=== PATIENT | female | born 1990 | race Hispanic/Latino ===

== ENCOUNTER 2018-10-06 08:46 | Emergency (ER) | payer OTHER ==
[~2018-10-06] VITALS: Ht 165.1 cm; Wt 113.4 kg
--- OUTSIDE RECORDS SUMMARY | 2018-10-06 08:49 | XMS REPORT | Summary of Care ---
Author Author [facility] Urology [facility] Organization [facility] Address Unknown Phone Unavailable Encounter HQ Rhiannar_maria m(FIN) [id number] Date(s): 09/17/18 - 09/17/18 [facility] Urology [facility] [address] [place], [place] [address] Attending Physician: Yann Castle MD Vital Signs No data available for this section Problem List Condition Effective Dates Status Health Status Informant Acute UTI(Confirmed) Active Dysuria(Confirmed) Active Escherichia Active coli(Confirmed)1 Urinary Active frequency(Confirmed) Morbid Active obesity(Confirmed) H/O complete eye Resolved exam(Confirmed)2 Vaginitis(Confirmed) Active 1Problem added by Discern Expert. Allergies, Adverse Reactions, Alerts Substance Reaction Severity Status NKDA Active Medications No data available for this section Results No data available for this section Immunizations No data available for this section Procedures Procedure Date Related Diagnosis Body Site Status Sinus Completed Social History Social History Type Response Substance Abuse Use: None. Sexual Sexually active: Yes. Exercise 1 Employment/School Status: Employed. Alcohol Current, Type Liquor. Frequency: 1-2 times per month. Smoking Status Never smoker; Exposure to Tobacco Smoke None; Cigarette Smoking Last 365 Days No; Reg Smoking Cessation Counseling No entered on: 07/05/18 1none Assessment and Plan No data available for this section
--- OUTSIDE RECORDS SUMMARY | 2018-10-06 08:49 | XMS REPORT | Summary of Care ---
Author Author [facility] Organization [facility] Address Unknown Phone Unavailable Encounter HQ Sulaiman(FIN) [id number] Date(s): 01/04/18 - 01/04/18 [facility] [address] [place] [address]- Encounter Diagnosis Bacterial vaginosis (Discharge Diagnosis) - 01/04/18 Acute lower UTI (urinary tract infection) (Discharge Diagnosis) - 01/04/18 Fatty infiltration of liver (Discharge Diagnosis) - 01/04/18 Discharge Disposition: Home or Self Care Attending Physician: Yann Garcia MD Vital Signs 1 2 3 Most recent to oldest [Reference Range]: 165.1 cm (01/04/18 12:13 PM) Height 98.1 DegF (01/04/18 4:30 PM) 97.7 DegF (01/04/18 2:01 PM) 99.4 DegF *HI* (01/04/18 12:13 PM) Temperature Oral [96.4-99.1 DegF] 149/100 mmHg *HI* (01/04/18 4:30 PM) 153/100 mmHg *HI* (01/04/18 12:13 PM) Blood Pressure [90-140/60-90 mmHg] 138 mmHg (01/04/18 2:01 PM) Systolic Blood Pressure [90-140 mmHg] 87 mmHg (01/04/18 2:01 PM) Diastolic Blood Pressure [60-90 mmHg] 16 BRMIN (01/04/18 4:30 PM) 16 BRMIN (01/04/18 2:01 PM) 18 BRMIN (01/04/18 12:13 PM) Respiratory Rate [14-20 BRMIN] 66 bpm (01/04/18 4:30 PM) 83 bpm (01/04/18 2:01 PM) 83 bpm (01/04/18 12:13 PM) Peripheral Pulse Rate [60-100 bpm] 120.909 kg (01/04/18 12:13 PM) Weight 44.36 m2 (01/04/18 12:13 PM) Body Mass Index Problem List No data available for this section Allergies, Adverse Reactions, Alerts Substance Reaction Severity Status NKDA Active Medications acetaminophen-hydrocodone 325 mg-5 mg oral tablet 1 tab, Route: PO, Drug Form: TAB, Dosing Weight 120.909, kg, ONCE, STAT, Start d ate: 01/04/18 15:23:00 CDT, Stop date: 01/04/18 15:23:00 CDT Notes: (Same as: [place] 325/5) Do not exceed 4gm/day of acetaminophen. Start Date: 01/04/18 Stop Date: 01/04/18 Status: Completed fentaNYL 50 microgram, Route: IVP, ONCE, Dosing Weight 120.909, kg, Priority: STAT, Start date: 01/04/18 12:46:00 CDT, Stop date: 01/04/18 12:46:00 CDT Start Date: 01/04/18 Stop Date: 01/04/18 Status: Completed fentaNYL 50 microgram, 1 mL, Route: IVP, Drug form: INJ, ONCE, Dosing Weight 120.909, kg, Priority: STAT, Start date: 01/04/18 15:24:00 CDT, Stop date: 01/04/18 15:24:00 CDT Notes: (Same as: Sublimaze) Preservative free. Start Date: 01/04/18 Stop Date: 01/04/18 Status: Completed fosfomycin 3 gm, 1 pkt, Route: PO, Drug form: PDR/REC, ONCE, Dosing Weight 120.909, kg, Sta rt date: 01/04/18 13:20:00 CDT, Stop date: 01/04/18 13:20:00 CDT, ABX Indication : Urinary Tract Infection Notes: (Same as: Monural) mix w/ 90 to 120 ml (3 to 4 ounces) of water and stir to dissolve. Do not use hot water. Take immediately after dissolving in water. Start Date: 01/04/18 Stop Date: 01/04/18 Status: Completed metroNIDAZOLE 500 mg oral tablet 500 mg=1 tab, PO, Q12H, X 7 day, # 14 tab, 0 Refill(s) Start Date: 01/04/18 Stop Date: 01/11/18 Status: Ordered phenazopyridine 100 mg, 1 tab, Route: PO, Drug form: TAB, ONCE, Dosing Weight 120.909, kg, Prior ity: STAT, Start date: 01/04/18 13:20:00 CDT, Stop date: 01/04/18 13:20:00 CDT Notes: Give with meals.(Same as: Pyridium) Start Date: 01/04/18 Stop Date: 01/04/18 Status: Completed Saline Flush 0.9% 10 mL, Route: IVP, Drug Form: INJ, Dosing Weight 120.909, kg, PRN, PRN Line Flus h, Start date: 01/04/18 12:46:00 CDT, Duration: 30 day, Stop date: 02/03/18 12:4 5:00 CDT Notes: Same as: BD Posiflush Sterile Start Date: 01/04/18 Stop Date: 01/04/18 Status: Discontinued Sodium Chloride 0.9% (Bolus) IV 1,000 mL, Infuse Over: 1 hr, Route: IV, ONCE, Priority: STAT, Dosing Weight 120. 909 kg, Start date: 01/04/18 12:46:00 CDT, Stop date: 01/04/18 12:46:00 CDT Start Date: 01/04/18 Stop Date: 01/04/18 Status: Completed tramadol 50 mg oral tablet 50 mg=1 tab, PO, Q8H, PRN Pain, X 20 day, # 24 tab, 0 Refill(s) Start Date: 01/04/18 Stop Date: 01/24/18 Status: Ordered Results ELECTROLYTES Most recent to 1 2 oldest [Reference Range]: Sodium Lvl [135-145 138 mEq/L mEq/L] (01/04/18 12:48 PM) Potassium Lvl 3.6 mEq/L [3.5-5.1 mEq/L] (01/04/18 12:48 PM) Chloride Lvl [95-109 103 mEq/L mEq/L] (01/04/18 12:48 PM) CO2 [24-32 mEq/L] 29 mEq/L (01/04/18 12:48 PM) AGAP [10.0-20.0 9.6 mEq/L mEq/L] *LOW* (01/04/18 12:48 PM) CHEM PANEL Most recent to 1 2 oldest [Reference Range]: Creatinine Lvl 0.66 mg/dL [0.50-1.40 mg/dL] (01/04/18 12:48 PM) eGFR 120 mL/min/1.73m2 1 *NA* (01/04/18 12:48 PM) BUN [7-22 mg/dL] 10 mg/dL (01/04/18 12:48 PM) B/C Ratio [6-25] 15 (01/04/18 12:48 PM) Glucose Lvl [70-99 103 mg/dL mg/dL] *HI* (01/04/18 12:48 PM) Total Protein 8.1 g/dL [6.4-8.4 g/dL] (01/04/18 12:48 PM) Albumin Lvl [3.5-5.0 3.8 g/dL g/dL] (01/04/18 12:48 PM) Globulin [2.7-4.2 4.3 g/dL g/dL] *HI* (01/04/18 12:48 PM) A/G Ratio [0.7-1.6] 0.9 (01/04/18 12:48 PM) Calcium Lvl 9.1 mg/dL [8.5-10.5 mg/dL] (01/04/18 12:48 PM) ALT [0-65 unit/L] 46 unit/L (01/04/18 12:48 PM) AST [0-37 unit/L] 25 unit/L (01/04/18 12:48 PM) Alk Phos [39-136 68 unit/L unit/L] (01/04/18 12:48 PM) Bili Total [0.2-1.3 0.2 mg/dL mg/dL] (01/04/18 12:48 PM) Lipase Lvl [73-393 171 unit/L unit/L] (01/04/18 12:48 PM) 1Result Comment: The eGFR is calculated using the CKD-EPI formula. In most young, healthy individuals the eGFR will be >90 mL/min/1.73m2. The eGFR declines with age. An eGFR of 60-89 may be normal in some populations, particularly the elderly, for whom the CKD-EPI formula has not been extensively validated. Use of the eGFR is not recommended in the following populations: Individuals with unstable creatinine concentrations, including patients and those with serious co-morbid conditions. Patients with extremes in muscle mass or diet. The data above are obtained from the National Kidney Disease Education Program ( NKDEP) which additionally recommends that when the eGFR is used in patients with extremes of body mass index for purposes of drug dosing, the eGFR should be mul tiplied by the estimated BMI. URINE CHEM Most recent to 1 2 oldest [Reference Range]: U Preg [Negative] Negative (01/04/18 12:43 PM) URINE AND STOOL Most recent to 1 2 oldest [Reference Range]: UA Turbidity [Clear] Clear (01/04/18 12:43 PM) UA Color [Yellow] Yellow *NA* (01/04/18 12:43 PM) UA pH [5.0-8.0] 5.0 (01/04/18 12:43 PM) UA Spec Grav 1.018 [<=1.030] (01/04/18 12:43 PM) UA Glucose [Negative Negative mg/dL mg/dL] *NA* (01/04/18 12:43 PM) UA Blood [Negative] Negative (01/04/18 12:43 PM) UA Ketones [Negative Negative mg/dL mg/dL] *NA* (01/04/18 12:43 PM) UA Protein [Negative Negative mg/dL mg/dL] (01/04/18 12:43 PM) UA Urobilinogen <=1.0 mg/dL [0.1-1.0 mg/dL] *NA* (01/04/18 12:43 PM) UA Bili [Negative] Negative *NA* (01/04/18 12:43 PM) UA Leuk Est Moderate [Negative] *ABN* (01/04/18 12:43 PM) UA Nitrite Negative [Negative] (01/04/18 12:43 PM) UA WBC [0-5 /HPF] 22 /HPF *HI* (01/04/18 12:43 PM) UA RBC [0-2 /HPF] 5 /HPF *HI* (01/04/18 12:43 PM) UA Sq Epi [Few /LPF] Moderate /LPF *ABN* (01/04/18 12:43 PM) UA Mucus [None Seen Few /LPF /LPF] *NA* (01/04/18 12:43 PM) HEMATOLOGY Most recent to 1 2 oldest [Reference Range]: WBC [3.7-10.4 K/CMM] 8.1 K/CMM (01/04/18 12:48 PM) RBC [4.20-5.40 4.66 M/CMM M/CMM] (01/04/18 12:48 PM) Hgb [12.0-16.0 g/dL] 12.6 g/dL (01/04/18 12:48 PM) Hct [36.0-48.0 %] 38.3 % (01/04/18 12:48 PM) MCV [80.0-98.0 fL] 82.1 fL (01/04/18 12:48 PM) MCH [27.0-31.0 pg] 27.0 pg (01/04/18 12:48 PM) MCHC [32.0-36.0 32.9 g/dL g/dL] (01/04/18 12:48 PM) RDW [11.5-14.5 %] 16.2 % *HI* (01/04/18 12:48 PM) MPV [7.4-10.4 fL] 8.1 fL (01/04/18 12:48 PM) Platelet [133-450 387 K/CMM K/CMM] (01/04/18 12:48 PM) Segs [45.0-75.0 %] 49.2 % (01/04/18 12:48 PM) Lymphocytes 41.0 % [20.0-40.0 %] *HI* (01/04/18 12:48 PM) Monocytes [2.0-12.0 7.1 % %] (01/04/18 12:48 PM) Eosinophils [0.0-4.0 1.9 % %] (01/04/18 12:48 PM) Basophils [0.0-1.0 0.8 % %] (01/04/18 12:48 PM) Segs-Bands # 4.0 K/CMM [1.5-8.1 K/CMM] (01/04/18 12:48 PM) Lymphocytes # 3.3 K/CMM [1.0-5.5 K/CMM] (01/04/18 12:48 PM) Monocytes # [0.0-0.8 0.6 K/CMM K/CMM] (01/04/18 12:48 PM) Eosinophils # 0.2 K/CMM [0.0-0.5 K/CMM] (01/04/18 12:48 PM) Basophils # [0.0-0.2 0.1 K/CMM K/CMM] (01/04/18 12:48 PM) MOLECULAR DIAGNOSTIC Most recent to 1 2 oldest [Reference Range]: Source APTIMA Vaginal Vaginal *NA* *NA* (01/04/18 1:45 PM) (01/04/18 1:45 PM) N gonorrhea by Amp Negative Det (APTIMA) *NA* [Negative] (01/04/18 1:45 PM) C trachomatis by Amp Negative Det (APTIMA) *NA* [Negative] (01/04/18 1:45 PM) Immunizations No data available for this section Procedures No data available for this section Social History Social History Type Response Smoking Status Never smoker; Exposure to Tobacco Smoke None; Cigarette Smoking Last 365 Days No; Reg Smoking Cessation Counseling No entered on: 01/04/18 Assessment and Plan No data available for this section
--- OUTSIDE RECORDS SUMMARY | 2018-10-06 08:49 | XMS REPORT | Summary of Care ---
Author Author [facility] Urology [facility] Organization [facility] Urology [facility] Address Unknown Phone Unavailable Encounter KULDIP Hilario(FIN) [id number] Date(s): 02/05/18 - 02/05/18 [facility] Urology [facility] [address] [place], [place] [address] [[email or web address]] Discharge Disposition: Home or Self Care Attending Physician: Yann Castle MD Vital Signs Most recent to 1 oldest [Reference Range]: Height 165.1 cm (02/05/18 3:41 PM) Temperature Oral 97.7 DegF [96.4-99.1 DegF] (02/05/18 3:41 PM) Blood Pressure 131/97 mmHg [90-140/60-90 mmHg] (02/05/18 3:41 PM) Respiratory Rate 16 BRMIN [14-20 BRMIN] (02/05/18 3:41 PM) Peripheral Pulse 114 bpm Rate [60-100 bpm] *HI* (02/05/18 3:41 PM) Weight 118.182 kg (02/05/18 3:41 PM) Body Mass Index 43.36 m2 (02/05/18 3:41 PM) Problem List Condition Effective Dates Status Health Status Informant Acute UTI(Confirmed) Active Dysuria(Confirmed) Active Escherichia Active coli(Confirmed)1 Urinary Active frequency(Confirmed) Morbid Active obesity(Confirmed) H/O complete eye Resolved exam(Confirmed)2 Vaginitis(Confirmed) Active 1Problem added by Discern Expert. Allergies, Adverse Reactions, Alerts Substance Reaction Severity Status NKDA Active Medications biotin 5 mg oral capsule 5 mg=1 cap, PO, Daily, # 30 cap, 0 Refill(s) Start Date: 02/05/18 Status: Ordered Naprosyn 500 mg oral tablet 500 mg=1 tab, PO, BID, PRN Pain, # 20 tab, 0 Refill(s) Start Date: 02/05/18 Status: Ordered phenazopyridine 200 mg oral tablet 200 mg=1 tab, PO, TID, PRN Dysuria, # 6 tab, 0 Refill(s) Start Date: 02/05/18 Stop Date: 02/05/18 Status: Discontinued tramadol 50 mg oral tablet 50 mg=1 tab, PO, Q6H, PRN Pain, # 40 tab, 0 Refill(s) Start Date: 02/05/18 Stop Date: 05/13/18 Status: Discontinued Urogesic-Blue oral tablet 1 tab, PO, QID, PRN dysuria, # 60 tab, 1 Refill(s), RAYMOND, Pharmacy: [facility] Start Date: 02/05/18 Stop Date: 03/03/18 Status: Completed Results No data available for this section Immunizations No data available for this section Procedures Procedure Date Related Diagnosis Body Site Status Insertion of non-indwelling bladder catheter 02/05/18 Completed (eg, straight catheterization for residual urine) Sinus Completed Social History Social History Type [...]
--- OUTSIDE RECORDS SUMMARY | 2018-10-06 08:49 | XMS REPORT | Summary of Care ---
Author Author [facility] Urology [facility] Organization [facility] Urology [facility] Address Unknown Phone Unavailable Encounter HQ Rhiannar_maria m(FIN) [id number] Date(s): 08/16/18 - 08/16/18 [facility] [address] [place], [place] [address] Attending Physician: Yann Castle MD [...]
--- OUTSIDE RECORDS SUMMARY | 2018-10-06 08:49 | XMS REPORT | Summary of Care ---
Author Author [facility] Urology [facility] Organization [facility] Urology [facility] Address Unknown Phone Unavailable Encounter HQ Chang_maria m(FIN) [id number] Date(s): 02/08/18 - 02/09/18 [facility] Urology [facility] [address] [place], [place] [address] Vital Signs No data available for this section Problem List Condition Effective Dates Status Health Status Informant Acute UTI(Confirmed) Active Dysuria(Confirmed) Active Escherichia Active coli(Confirmed)1 Urinary Active frequency(Confirmed) Morbid Active obesity(Confirmed) H/O complete eye Resolved exam(Confirmed)2 1Problem added by Discern Expert. Allergies, Adverse [...] Reg Smoking Cessation Counseling No entered on: 02/05/18 1none Assessment and Plan No data available for this section
--- OUTSIDE RECORDS SUMMARY | 2018-10-06 08:49 | XMS REPORT | Summary of Care ---
Author Author [facility] Urology [facility] Organization [facility] Urology [facility] Address Unknown Phone Unavailable Encounter KULDIP Hilario(FIN) [id number] Date(s): 03/03/18 - 03/03/18 [facility] Urology [facility] [address] [place], [place] [address] Discharge Disposition: Home or Self Care Attending Physician: Yann Castle MD Vital Signs Most recent to 1 oldest [Reference Range]: Height 165.1 cm (03/03/18 4:07 PM) Blood Pressure 140/86 mmHg [90-140/60-90 mmHg] (03/03/18 4:07 PM) Peripheral Pulse 95 bpm Rate [60-100 bpm] (03/03/18 4:07 PM) Weight 118.182 kg (03/03/18 4:07 PM) Body Mass Index 43.36 m2 (03/03/18 4:07 PM) Problem List Condition Effective Dates Status Health Status Informant Acute UTI(Confirmed) Active Dysuria(Confirmed) Active Escherichia Active coli(Confirmed)1 Urinary Active frequency(Confirmed) Morbid Active obesity(Confirmed) H/O complete eye Resolved exam(Confirmed)2 Vaginitis(Confirmed) Active 1Problem added by Discern Expert. Allergies, Adverse Reactions, Alerts Substance Reaction Severity Status NKDA Active Medications No Known Medications Results No data available for this section [...]
--- OUTSIDE RECORDS SUMMARY | 2018-10-06 08:49 | XMS REPORT | Encounter Summary ---
Author Organization Unknown Address [address] [place] [address] Phone [phone] Reason for Visit Medical Complaint Instructions 1. Influenza-like symptoms rapid flu (A+B) 2. Pain in throat sore throat: care instructions rapid strep group A, throat Lidocaine Viscous 2 % mucosal solution 3. Dysuria painful urination (dysuria): care instructions urinalysis, dipstick cephalexin 500 mg capsule culture, urine 4. Venereal disease screening CT + NG RNA, PCR, unspecified specimen 5. Body mass index 40+ - severely obese body mass index: care instructions 6. Tachycardia patient follow up phone call Discussion Note Pt is in NAD; Verbalizes understanding of all instructions with no questions at this time. Plan of Care Patient Instructions Gargle and spit viscous lidocaine as needed for sore throat as directed. Take fluticasone as needed for congestion. [place] one spray in each nostril twice a day. Take a warm, steamy shower, blow your nose thereafter, and spray in each nostril. Tilt your head up for about 10 seconds and breath through your mouth. Do not sniff or snort the medication in or else the medication will go to your throat and not be absorbed appropriately. Alternate with Ibuprofen and acetaminophen every 4hrs as needed for pain/fever/headache. Proper hydration and rest. Return to work/school if free of fever for 24-hrs. Do not share any utensils/cups, no kissing, recommend hand washing after coughing/sneezing/blowing nose and cover face when you do so. Recommend proper hydration and frequent urination. Avoid douching, Recommend urinating after sexual intercourse. Recommend wipe front to back after urinating. Avoid using tubs. Take medications as prescribed. Follow up with your PCP within 2-3 days if symptoms worsen as discussed. Recommend follow a low sodium/fat/carb diet and exercise 30-45 mins/d 3-4 days a week once symptoms resolve. In case of an emergency call 911 or go to nearest ER. Reminders Provider Appointments None recorded. Lab Rapid Flu (A+B) 06/29/2018 [facility] Rapid Strep Group a, Throat 06/29/2018 [facility] Urinalysis, Dipstick 06/29/2018 [facility] Culture, Urine 06/29/2018 [facility] CT + NG RNA, PCR, Unspecified Specimen 06/29/2018 [facility] Referral None recorded. Procedures None recorded. Surgeries None recorded. Imaging None recorded. Medications Name Start Date cephalexin 500 mg capsule Take 1 capsule every 12 hours by oral route as directed for 10 days. fluticasone 50 mcg/actuation nasal spray,suspension USE ONE (1) SPRAY INTRANASALLY ONCE A DAY. Lidocaine Viscous 2 % mucosal solution Take 15 mL every 3 hours by oral route as needed. pantoprazole 40 mg tablet,delayed release TAKE ONE (1) TABLET(S) BY MOUTH ONCE A DAY. Urogesic-Blue 81.6 mg-40.8 mg-0.12 mg tablet 06/29/2018 Medications Administered None recorded. Vitals Height Weight BMI Blood Pressure 5 ft 5 in 250 lbs 41.6 kg/m2 110/70 mm[Hg] Lab Results Date Name Specimen Result Interpretation Description Value Range Status Address Urinalysis, Dipstick Color : Yellow [facility]: [address] [place] [address] Clarity : Cloudy [facility]: [address] [place] [address] Leukocytes : Small [facility]: [address] [place] [address] Nitrites : Negative [facility]: [address] [place] [address] Urobilinogen : Normal [facility]: [address] [place] [address] Protein : Negative [facility]: [address] [place] [address] Ph : 6.0 [facility]: [address] [place] [address] Blood : Hemolyzed Trace [facility]: [address] [place] [address] Specific [place] : 1.000 [facility]: [address] [place] [address] Ketones : Negative [facility]: [address] [place] [address] Bilirubin : Negative [facility]: [address] [place] [address] Glucose Negative [facility]: [address] [place] [address] Rapid Strep Group a, Throat Result negative [facility]: [address] [place] [address] Swab Location Left and Right tonsillar pillars [facility]: [address] [place] [address] Rapid Flu (A+B) Influenza a negative [facility]: [address] [facility] Influenza B negative [facility]: [address] [facility] Allergies Code Code System Name Reaction Severity Status Onset NKDA Problems Name Status Onset Date Source Pain in Throat Active 06/29/2018 Influenza-like Symptoms Active 06/29/2018 Tachycardia Active 06/29/2018 Dysuria Active 06/29/2018 Venereal Disease Screening Active 06/29/2018 Body Mass Index 40+ - Severely Obese Active 06/29/2018 Procedures Date Name Performed by Tonsillectomy Information not available Vaccine List Vaccine Type Tdap 01/17/2018 Social History Smoking Status Never Smoker Past Encounters 06/29/2018 Influenza-like Symptoms; Pain in Throat; Dysuria; Venereal Disease Screening; Body Mass Index 40+ - Severely Obese; Tachycardia Jessie Walsh, [facility]: [address] [place] [address], Ph. History of Present Illness [id number] Reported By: Patient HPI: Location: urethra. Quality: pain, pressure, burning. Severity: worsening, moderate. Duration: constant. Onset/Timing: worse, gradual. Context: no known exposure to STD, no prior history of STDs, sexually active, [id number], heterosexual, vaginal intercourse, history of urine cultures/antibiotic treatment, wipes anterior to posterior, voids after intercourse; Pt follow with urology for recurrent UTIs. Last f/u on 01/2018. Modifying factors nothing makes it worse. Associated Symptoms: no flank pain, no jaundice, no blood in the urine, no vaginal discharge, no blisters on genitals, no rash on genitals, no muscle aches, no headache, fever/chills, pain during urination, urgency; sinus pressure, sore throat, and body aches [id number] Reported By: Patient HPI: Quality: symptoms worse during the day. Duration: 3 days. Severity: highest temperature 100. Onset/Timing: first recorded 06-28-18. Context: no ill contacts, no tick/insect bites, no recent travel, no new medications. Associated Symptoms: no headache, no muscle aches, no rash, no lethargy, fever/chills, cough, nasal passage blockage (stuffiness); sinus pressure, sore throat, body aches, urinary urgency and dysuria. Modifying Factors nothing gives relief Review of Systems:ROS as noted in the HPI Review of Systems Basic Reported By: Patient Physical Exam Adult Basic, Adult Female Complete Reported By: Patient Constitutional: General Appearance: healthy-appearing, overweight, morbidly obese. Level of Distress: NAD. Ambulation: ambulating normally Psychiatric: Mental Status: active and alert. Orientation: to time, to place, to person Eyes: Lids and Conjunctivae: non-injected, no discharge, no pallor; no periorbital edema. Corneas: grossly intact. Lens: clear [id number]-Throat: Ears: no lesions on external ear, no outer ear tenderness, EACs clear, TMs clear. Hearing: no hearing loss. Nose: no lesions on external nose, nares patent, no septal deviation, nasal passages clear, no sinus tenderness, nasal discharge--rhinorrhea; B/L NTs pink and edematous. Lips, Teeth, and Gums: no mouth or lip ulcers, no bleeding gums, normal dentition. Oropharynx: moist mucous membranes, no erythema, no exudates, tonsils absent Neck: Neck: supple. Lymph Nodes: no cervical LAD Lungs: Respiratory effort: no dyspnea, no tachypnea, no use of accessory muscles, no intercostal retractions. Auscultation: breath sounds normal Cardiovascular: Heart Auscultation: no murmurs, tachycardia Musculoskeletal:: Extremities: no edema Neurologic: Gait and Station: normal gait, normal station. Cranial Nerves: grossly intact Abdomen: Bowel Sounds: normal. Inspection and Palpation: soft, non-distended, no tenderness, no guarding, no rebound tenderness, no masses, no CVA tenderness. Liver: non-tender, no hepatomegaly. Spleen: non-tender, no splenomegaly. Hernia: none palpable
--- OUTSIDE RECORDS SUMMARY | 2018-10-06 08:49 | XMS REPORT | Summary of Care ---
Author Author [facility] Organization [facility] Address Unknown Phone Unavailable Encounter HQ Rhiannar_maria m(FIN) [phone] Date(s): 02/08/18 - 02/09/18 [facility] [address] [place], [place] [address] Vital Signs No data available for [...]
--- OUTSIDE RECORDS SUMMARY | 2018-10-06 08:49 | XMS REPORT | Clinical Summary ---
Author Author [facility] Address Unknown Phone Unavailable Care Team Providers Care Warehouse Puller Name Role Phone Asked, No Pcp PCP Unavailable Allergies No Known Allergies Medications End Date Status Medication Sig Dispensed Refills Start Date Active pantoprazole (PROTONIX) 0 40 MG EC tablet 8 08/27/2018 clotrimazole-betamethason Apply 45 g 0 e (LOTRISONE) 1-0.05 % topically 2 9 cream (two) times a day for 10 days. 08/28/2018 ketoconazole (NIZORAL) Take 1 tablet 10 tablet 0 200 mg tablet (200 mg 9 total) by mouth 2 (two) times a day for 5 days. 09/11/2018 ketoconazole (NIZORAL) Take 1 tablet 10 tablet 0 200 mg tablet (200 mg 9 total) by mouth 2 (two) times a day for 5 days. Active Problems Not on file Encounters Care Team Description Date Type Specialty Yadira Peck MA 09/06/2018 Refill Obstetrics and Gynecology Des Fam MD 09/05/2018 Refill Obstetrics and Gynecology Yadira Peck MA 08/31/2018 Telephone Obstetrics and Gynecology Eloisa Henning, ANGELA IC (interstitial cystitis) (Primary Dx) 08/25/2018 Orders Only Obstetrics and Gynecology Des Fam MD 08/25/2018 Telephone Obstetrics and Yadira Garza MA 08/24/2018 Telephone Obstetrics and Gynecology Des Fam MD 08/23/2018 Telephone Obstetrics and Des Zhou MD 08/20/2018 Telephone Obstetrics and Gynecology Des Fam MD 08/17/2018 Telephone Obstetrics and Gynecology Des Fam MD Well woman exam (Primary Dx); Acute vaginitis 08/16/2018 Office Visit Obstetrics and Gynecology Des Fam MD 08/16/2018 Orders Only Obstetrics and Gynecology Sarai Hopson MD 07/30/2018 Abstract General Surgery after 10/05/2017 Family History Medical History Relation Name Comments Diabetes Father Heart attack Maternal Grandfather Diabetes Paternal Grandmother Relation Name Status Comments Father Maternal Grandfather Paternal Grandmother Social History Date Tobacco Use Types Packs/Day Years Used Never Smoker Smokeless Tobacco: Never Used Alcohol Use Drinks/Week oz/Week Comments No Alcohol Habits Answer Date Recorded How often do you have a drink containing alcohol? Never 08/16/2018 How many drinks containing alcohol do you have on Not asked a typical day when you are drinking? How often do you have six or more drinks on one Not asked occasion? Sex Assigned at Date Recorded Not on file Industry Job Start Date Occupation Not on file Not on file Not on file Travel End Travel History Travel Start No recent travel history available. Last Filed Vital Signs Time Taken Vital Sign Reading 08/16/2018 8:37 AM CLERK TELE[employer] Blood Pressure 138/92 08/16/2018 8:37 AM CLERK TELEVISION [employer]ODUCTION Pulse 98 08/16/2018 8:37 AM CLERK TELEVISION PRODUCTION Temperature 36.7 C (98 F) - Respiratory Rate - - Oxygen Saturation - - Inhaled Oxygen - Concentration 08/16/2018 8:37 AM CLERK TELEVISION PRODUCTION Weight 117 kg (258 lb 12.8 oz) 08/16/2018 8:37 AM CLERK TELEVISION PRODUCTION Height 165.1 cm (5' 5") 08/16/2018 8:37 AM CLERK TELEVISION PRODUCTION Body Mass Index 43.07 Plan of Treatment Care Team Description Date Type Specialty Des Fam MD [address] [place] [address] [phone] Brenna Hinds, PT 10/06/2018 Office Visit Physical Therapy Des Fam MD [address] [place] [address] [phone] Brenna Hinds, PT 10/13/2018 Office Visit Physical Therapy Des Fam MD [address] [place] [address] [phone] Brenna Hinds, PT 10/20/2018 Office Visit Physical Therapy Des Fam MD [address] [place] [address] [phone] Brenna Hinds, PT 10/27/2018 Office Visit Physical Therapy Des Fam MD [address] [facility] [address] [place] [address] [phone] Brenna Hinds, PT 11/03/2018 Office Visit Physical Therapy Des Fam MD [address] [place] [address] [address] [place] [address] [phone] Guzman Brenna, PT 11/10/2018 Office Visit Physical Therapy Des Fam MD [address] [place] [address] [place] [address] [phone] Guzman Brenna, PT 11/17/2018 Office Visit Physical Therapy Health Maintenance Due Date Last Done Comments CERVICAL CANCER SCREENING 2009 INFLUENZA VACCINE 02/17/2018 Procedures Comments Procedure Name Priority Date/Time Associated Diagnosis HEMOGLOBIN A1C Routine 08/16/2018 9:19 AM CLERK TELEVISION PRODUCTION HIV 1/2 ANTIGEN/ANTIBODY, Routine 08/16/2018 FOURTH GENERATION W/RFL 9:19 AM CLERK TELEVISION PRODUCTION (REFLEX [facility]) HPV GENOTYPES 16, 18/45 Routine 08/16/2018 9:18 AM CLERK TELEVISION PRODUCTION SURESWAB(R), CANDIDIASIS, Routine 08/16/2018 PCR (REFLEX) 9:18 AM CLERK TELEVISION PRODUCTION SURESWAB(R) TRICHOMONAS Routine 08/16/2018 VAGINALIS RNA, QL, TMA 9:18 AM CLERK TELEVISION PRODUCTION SURESWAB(R) BACTERIAL Routine 08/16/2018 VAGINOSIS DNA, QN, PCR 9:18 AM CLERK TELEVISION PRODUCTION (REFLEX) CHLAMYDIA/N. GONORRHOEAE Routine 08/16/2018 RNA, TMA 9:18 AM CLERK TELEVISION PRODUCTION HPV MRNA E6/E7 REFLEX Routine 08/16/2018 HPV 16, 18/45 (REFLEX) 9:18 AM CLERK TELEVISION PRODUCTION THINPREP TIS PAP Routine 08/16/2018 9:18 AM CLERK TELEVISION PRODUCTION PAP W/AGE BASED SCREENING Routine 08/16/2018 Well woman exam PLUS CT/NG 9:18 AM CLERK TELEVISION PRODUCTION Acute vaginitis after 10/05/2017 Results * HIV 1/2 ANTIGEN/ANTIBODY, FOURTH GENERATION W/RFL (REFLEX [facility]) (08/16/2018 9:19 AM CLERK TELEVISION PRODUCTION) HIV AG/AB 4th gen NON-REACTIVE NON-REACTIVE [facility] Comment: EUSTIS HIV-1 antigen and HIV-1/HIV-2 antibodies were not detected. There is no laboratory evidence of HIV infection. PLEASE NOTE: This information has been disclosed to you from records whose confidentiality may be protected by state law.If your state requires such protection, then the state law prohibits you from making any further disclosure of the information without the specific written consent of the person to whom it pertains, or as otherwise permitted by law. A general authorization for the release of medical or other information is NOT sufficient for this purpose. For additional information please refer to http://education.[employer].com/faq/FFE922 (This link is being provided for informational/ educational purposes only.) The performance of this assay has not been clinically validated in patients less than 2 years old. Resulting Agency Comment Performing Organization Information: Site ID: [id number] Name: [facility] Address: [address] [place] [address] Director: Radha Capps Performing Organization Address City/State/Zipcode Phone Number [employer] [place] [phone] * Hemoglobin A1c (08/16/2018 9:19 AM CLERK TELEVISION PRODUCTION) Hemoglobin A1C 5.6 <5.7 % of total Hgb [facility] Comment: EUSTIS For the purpose of screening for the presence of diabetes: <5.7% Consistent with the absence of diabetes 5.7-6.4%Consistent with increased risk for diabetes (predi abetes) > or=6.5%Consistent with diabetes This assay result is consistent with a decreased risk of diabetes. Currently, no consensus exists regarding use of hemoglobin A1c for diagnosis of diabetes in children. According to [place] Diabetes Association (ADA) guidelines, hemoglobin A1c <7.0% represents optimal control in non- diabetic patients. Different metrics may apply to specific patient populations. Standards of Medical Care in Diabetes(ADA). Resulting Agency Comment Performing Organization Information: Site ID: [id number] Name: [facility] Address: [address] [place] [phone] Director: Radha Capps Performing Organization Address City/[facility] Cent[facility] Phone Number [employer] [address] [address] * SURESWAB(R), CANDIDIASIS, PCR (08/16/2018 9:18 AM CLERK TELEVISION PRODUCTION) C. albicans, DNA NOT DETECTED [facility] C. glabrata, DNA NOT DETECTED [facility] C. tropicalis, DNA NOT DETECTED [facility] C. parapsilosis, DNA NOT DETECTED [facility] Comment: REFERENCE RANGE: NOT DETECTED This test was developed and its analytical performance characteristics have been determined by [facility]. It has not been cleared or approved by FDA. This assay has been validated pursuant to the CLIA regulations and is used for clinical purposes. Resulting Agency Comment Performing Organization Information: Site ID: [id number] Name: [facility] Address: [address] [place] [phone] Director: Antonio Liu MD Performing Organization Address City/[facility] Cent[facility]ode Phone Number [employer] [address] [place] [address] [phone] * SURESWAB(R) TRICHOMONAS VAGINALIS RNA, QL, TMA (Reflex) (08/16/2018 9:18 AM CLERK TELEVISION PRODUCTION) Sureswab(r) trichomonas NOT DETECTED [facility] vaginalis RNA, QL, TMA Comment: REFERENCE RANGE: NOT DETECTED This test was performed using the APTIMA(R) Trichomonas vaginalis assay (Gen-Probe(R)). For additional information, please refer to http://education.[facility].com/faq/Trichomonastma Resulting Agency Comment Performing Organization Information: Site ID: [id number] Name: [facility] Address: [address] [place] [phone] Director: Antonio Liu MD Performing Organization Address City/State/Zipcode Phone Number [employer] [address] [place], [place] [phone] * SURESWAB(R) BACTERIAL VAGINOSIS DNA, QN, PCR (08/16/2018 9:18 AM CLERK TELEVISION PRODUCTION) BV category NOT SUPPORTIVE [facility] Lactobacillus species NOT DETECTED Log (cells/mL) [facility] Atopobium vaginae NOT DETECTED Log (cells/mL) [facility] Megasphaera species NOT DETECTED Log (cells/mL) [facility] Gardnerella vaginalis NOT DETECTED Log (cells/mL) [facility] Comment: REFERENCE RANGE: BV Category: NOT SUPPORTIVE NOT SUPPORTIVE OF BV: The pattern of results is not supportive of a diagnosis of BV: 1) Presence of Lactobacillus spp., G. vaginalis levels less than 6.0 log cells/mL, and absence of A. vaginae and Megasphaera spp; or 2) Absence of all targeted organisms; or 3) Absence of Lactobacillus spp. plus G. vaginalis detected at levels less than 6.0 log cells/mL and absence of A. vaginae and Megasphaera spp. EQUIVOCAL FOR BV: The pattern of results is neither supportive nor not supportive of a diagnosis of BV. The patient may be in transition into or out of BV: Presence of Lactobacillus spp. plus G. vaginalis (greater or equal to 6.0 log cells/mL) and/or one of the other BV-associated pathogens. SUPPORTIVE OF BV: The pattern of results is supportive of a diagnosis of BV: Absence of Lactobacillus spp. and presence of G. vaginalis greater than or equal to 6.0 log cells/mL and/or one or both of the other BV-associated pathogens. Concentration for Lactobacilli (L. acidophilus/crispatus, L. jensenii) are collectively reported under the term "Lactobacillus spp.", as these species are among the peroxide producing Lactobacilli thought to be protective against bacterial vaginosis. Atopobium vaginae, Megasphaera spp., and Gardnerella (greater than 6.0 log cells/mL) have been associated with vaginosis when present in the absence of peroxidase producing Lactobacilli. This test was developed and its analytical performance characteristics have been determined by [facility]. It has not been cleared or approved by FDA. This assay has been validated pursuant to the CLIA regulations and is used for clinical purposes. Resulting Agency Comment Performing Organization Information: Site ID: [id number] Name: [facility] Address: [address] [place] [phone] Director: Antonio Liu MD Performing Organization Address City/State/Zipcode Phone Number [employer] [address] [place] [address] [phone] * HPV mRNA E6/E7 REFLEX HPV 16, 18/45 (08/16/2018 9:18 AM CLERK TELEVISION PRODUCTION) HPV mRNA e6/e7 Detected (A) Not Detected [facility] Comment: EUSTIS This test was performed using the APTIMA HPV Assay ([employer] This assay detects E6/E7 viral messenger RNA (mRNA) from 14 high-risk HPV types (16,18,31,33,35,39,45,51,52,56 ,58,59,66,68). The analytical performance characteristics of this assay have been determined by [facility]. The modifications have not been cleared or approved by the FDA. This assay has been validated pursuant to the CLIA regulations and is used for clinical purposes. Resulting Agency Comment Performing Organization Information: Site ID: [id number] Name: [facility] Address: [address] [place] [phone] Director: Radha Capps Performing Organization Address [facility] Centercode Phone Number [employer] [place] [phone] * PAP W/AGE BASED SCREENING PLUS CT/NG (08/16/2018 9:18 AM CLERK TELEVISION PRODUCTION) Comment Comment: [facility] This order for age-based [facility] cervical cancer and STI II screening follows ACOG guidelines(PB 168, 140, PRE406). See individual assays for performing site location. Specimen Swab Resulting Agency Comment Performing Organization Information: Site ID: [id number] Name: [facility] Address: [address] [place] [address] Director: Dr. Jero Hardy Performing Organization Address City/State/Zipcode Phone Number [facility] [address] [place] [address] II * HPV Genotypes 16, 18/45 (08/16/2018 9:18 AM CLERK TELEVISION PRODUCTION) HPV 16 RNA NOT DETECTED NOT DETECTED [facility] HPV 18/45 RNA NOT DETECTED NOT DETECTED [facility] Comment: EUSTIS This test was performed using the APTIMA HPV 16 18/45 genotype assay ([employer] The assay can differentiate HPV 16 from HPV 18 and/or HPV 45, but does not differentiate between HPV 18 and HPV 45. The analytical performance characteristics of this assay have been determined by [facility]. The modifications have not been cleared or approved by the FDA. This assay has been validated pursuant to the CLIA regulations and is used for clinical purposes. Resulting Agency Comment Performing Organization Information: [facility] Name: [facility] Address: [address] [place] [phone] Director: Radha Capps Performing Organization Address City/[facility] Centercode Phone Number [employer] [address] [address] * CHLAMYDIA/N. GONORRHOEAE RNA, TMA (08/16/2018 9:18 AM CLERK TELEVISION PRODUCTION) Chlamydia trachomatis NOT DETECTED NOT DETECTED [facility] RNA, [facility] Neisseria gonorrhoeae NOT DETECTED NOT DETECTED [facility] RNA, [facility] (Always message) Comment: [facility] This test was performed using EUSTIS the APTIMA COMBO2 Assay ([employer] The analytical performance characteristics of this assay, when used to test SurePath specimens have been determined by [facility]. Resulting Agency Comment Performing Organization Information: [facility]: [facility] Address: [address] [place] [address] Director: Radha Capps Performing Organization Address [facility] Cent[facility]ode Phone Number [employer] [address] [address] * THINPREP TIS PAP (08/16/2018 9:18 AM CLERK TELEVISION PRODUCTION) Clinical information None given [facility] EUSTIS Date of last menstrual NONE GIVEN [facility] Prev. pap: NONE GIVEN [facility] Prev. bx: NONE GIVEN [facility] Source None given [facility] EUSTIS Statement of adequacy Comment: [facility] Satisfactory for evaluation. EUSTIS Endocervical/transformation zone component present. Age and/or menstrual status not provided Interpretation/result: Comment: Negative for [facility] intraepithelial lesion or EUSTIS malignancy. Comment Comment: [facility] This Pap test has been EUSTIS evaluated with computer assisted technology. Farm Mechanic Comment: [facility] DJL, CT (ASCP) EUSTIS CT screening location: [address], [place] [address] Review human resources manager manufacturing Comment: [facility] VXJ, CT(ASCP) EUSTIS CT screening location: [place] [address] Comment Comment: [facility] EXPLANATORY NOTE: EUSTIS The Pap is a screening test for cervical cancer. It is not a diagnostic test and is subject to false negative and false positive results. It is most reliable when a satisfactory sample, regularly obtained, is submitted with relevant clinical findings and history, and when the Pap result is evaluated along with historic and current clinical information. Resulting Agency Comment Performing Organization Information: Site ID: RGA Name: [facility] Address: [address] [place] [phone] Director: Radha Capps Performing Organization Address City/State/Zipcode Phone [place] [address] after 10/05/2017 Insurance Payer Benefit Subscriber ID Type Phone Address Plan / Group [facility] xxxxxxxxx HMO/PPO THCARE CHOICE/CHO ICE + Advance Directives Patient has advance care planning documents on file. For more information, matt e contact: Navneet Carrera [address] [place] [address]
--- OUTSIDE RECORDS SUMMARY | 2018-10-06 08:49 | XMS REPORT | Continuity of Care Document ---
Author Author Becky rome Organization Interface Address Unknown Phone Unavailable Problems Problem Status Onset Date Classification Date Reported Comments Source Venereal disease screening 06/29/2018 Diagnosis 06/29/2018 [facility] Pain in throat 06/29/2018 Diagnosis 06/29/2018 [facility] Influenza-like symptoms 06/29/2018 Diagnosis 06/29/2018 [facility] Body mass index 40+ - severely obese 06/29/2018 Diagnosis 06/29/2018 [facility] Pain in Throat 06/29/2018 Problem 06/29/2018 [facility] Influenza-like Symptoms 06/29/2018 Problem 06/29/2018 [facility] Tachycardia 06/29/2018 Problem 06/29/2018 [facility] Venereal Disease Screening 06/29/2018 Problem 06/29/2018 [facility] Body Mass Index 40+ - Severely Obese 06/29/2018 Problem 06/29/2018 [facility] N30.00 - ACUTE CYSTITIS WITHOUT HEMATUR Active 05/06/2018 [facility] N30.00 ACUTE CYSTITIS W/O HEMATURIA Active 05/06/2018 [facility] ACUTE CYSTITIS W/O HEMATURIA Active 05/06/2018 [facility] Bacterial vaginosis 01/04/2018 01/07/2018 [facility] Acute lower UTI 01/04/2018 01/07/2018 [facility] Fatty infiltration of liver 01/04/2018 01/07/2018 [facility] URINARY SYMPTOMS Active 01/04/2018 [facility] Acute UTI Active Problem 09/20/2018 [facility] Dysuria Active Problem 09/20/2018 [facility] Escherichia coli<sup>1</sup> Active Problem 09/20/2018 Problem added by Discern Expert. [facility] Urinary frequency Active Problem 09/20/2018 [facility] Morbid obesity Active Problem 09/20/2018 [facility] H/O complete eye exam<sup>2</sup> Resolved Problem 09/20/2018 11/04/2017 [facility] Vaginitis Active Problem 09/20/2018 [facility] ACUTE CYSTITIS WITHOUT HEMATURIA Active [facility] Medications Medication Details Route Status Patient Instructions Ordering Provider Order Date Source Hyoscyamine Sulfate 0.12 MG / Methenamine 81.6 MG / Methylene blue 10.8 MG / Sodium Phosphate, Monobasic 40.8 MG Oral Tablet [Urogesic Blue Reformulated Oct 2011] Urogesic-Blue 81.6 mg-40.8 mg-0.12 mg tablet Active 06/29/2018 [facility] Hyoscyamine Sulfate 0.12 MG / Methenamine 81.6 MG / Methylene blue 10.8 MG / Sodium Phosphate, Monobasic 40.8 MG Oral Tablet [Urogesic Blue Reformulated Oct 2011] 1 tab, PO, QID, PRN dysuria, # 60 tab, 1 Refill(s), RAYMOND, Pharmacy: [facility] No Longer Active 02/05/2018 [facility] biotin 5 mg oral capsule 5 mg=1 cap, PO, Daily, # 30 cap, 0 Refill(s) Active 02/05/2018 [facility] Naproxen 500 MG Oral Tablet [Naprosyn] 500 mg=1 tab, PO, BID, PRN Pain, # 20 tab, 0 Refill(s) Active 02/05/2018 [facility] phenazopyridine 200 mg oral tablet 200 mg=1 tab, PO, TID, PRN Dysuria, # 6 tab, 0 Refill(s) Inactive 02/05/2018 [facility] tramadol hydrochloride 50 MG Oral Tablet 50 mg=1 tab, PO, Q6H, PRN Pain, # 40 tab, 0 Refill(s) No Longer Active 02/05/2018 [facility] tramadol hydrochloride 50 MG Oral Tablet 50 mg=1 tab, PO, Q8H, PRN Pain, X 20 day, # 24 tab, 0 Refill(s) Active 01/04/2018 [facility] Fentanyl 50 microgram, 1 mL, Route: IVP, Drug form: INJ, ONCE, Dosing Weight 120.909, kg, Priority: STAT, Start date: 01/04/18 15:24:00 CDT, Stop date: 01/04/18 15:24:00 CDTNotes: (Same as: Sublimaze) Preservative free. Inactive 01/04/2018 [facility] Acetaminophen 325 MG / Hydrocodone Bitartrate 5 MG Oral Tablet 1 tab, Route: PO, Drug Form: TAB, Dosing Weight 120.909, kg, ONCE, STAT, Start date: 01/04/18 15:23:00 CDT, Stop date: 01/04/18 15:23:00 CDTNotes: (Same as: Baldwin 325/5) Do not exceed 4gm/day of acetaminophen. Inactive 01/04/2018 [facility] Metronidazole 500 MG Oral Tablet 500 mg=1 tab, PO, Q12H, X 7 day, # 14 tab, 0 Refill(s) Active 01/04/2018 [facility] Phenazopyridine 100 mg, 1 tab, Route: PO, Drug form: TAB, ONCE, Dosing Weight 120.909, kg, Priority: STAT, Start date: 01/04/18 13:20:00 CDT, Stop date: 01/04/18 13:20:00 CDTNotes: Give with meals. (Same as: Pyridium) Inactive 01/04/2018 [facility] Fosfomycin 3 gm, 1 pkt, Route: PO, Drug form: PDR/REC, ONCE, Dosing Weight 120.909, kg, Start date: 01/04/18 13:20:00 CDT, Stop date: 01/04/18 13:20:00 CDT, ABX Indication: Urinary Tract InfectionNotes: (Same as: Monural) mix w/ 90 to 120 ml (3 to 4 ounces) of water and stir to dissolve. Do not use hot water. Take immediately after dissolving in water. Inactive 01/04/2018 [facility] Fentanyl 50 microgram, Route: IVP, ONCE, Dosing Weight 120.909, kg, Priority: STAT, Start date: 01/04/18 12:46:00 CDT, Stop date: 01/04/18 12:46:00 CDT Inactive 01/04/2018 [facility] Sodium Chloride 0.9% (Bolus) IV 1,000 mL, Infuse Over: 1 hr, Route: IV, ONCE, Priority: STAT, Dosing Weight 120.909 kg, Start date: 01/04/18 12:46:00 CDT, Stop date: 01/04/18 12:46:00 CDT Inactive 01/04/2018 [facility] Saline Flush 0.9% 10 mL, Route: IVP, Drug Form: INJ, Dosing Weight 120.909, kg, PRN, PRN Line Flush, Start date: 01/04/18 12:46:00 CDT, Duration: 30 day, Stop date: 02/03/18 12:45:00 CDTNotes: Same as: BD Posiflush Sterile Inactive 01/04/2018 [facility] Cephalexin 500 MG Oral Capsule cephalexin 500 mg capsule Take 1 capsule every 12 hours by oral route as directed for 10 days. Active [facility] Fluticasone propionate 0.05 MG/ACTUAT Metered Dose Nasal Hollis fluticasone 50 mcg/actuation nasal spray,suspension USE ONE (1) SPRAY INTRANASALLY ONCE A DAY. Active [facility] Lidocaine Hydrochloride 20 MG/ML Mucous Membrane Topical Solution Lidocaine Viscous 2 % mucosal solution Take 15 mL every 3 hours by oral route as needed. Active [facility] pantoprazole 40 MG Delayed Release Oral Tablet pantoprazole 40 mg tablet,delayed release TAKE ONE (1) TABLET(S) BY MOUTH ONCE A DAY. Active [facility] Allergies, Adverse Reactions, Alerts Substance Category Reaction Severity Reaction type Status Date Reported Comments Source Immunizations Immunization Date Given Site Status Last Updated Comments Source Tdap 01/17/2018 completed [facility] Results Order Name Results Value Reference Range Date Interpretation Comments Source Urinalysis macro (dipstick) panel - Urine COLOR : Yellow 06/29/2018 [facility] Urinalysis macro (dipstick) panel - Urine CLARITY : Cloudy 06/29/2018 [facility] Urinalysis macro (dipstick) panel - Urine LEUKOCYTES : Small 06/29/2018 [facility] Urinalysis macro (dipstick) panel - Urine NITRITES : Negative 06/29/2018 [facility] Urinalysis macro (dipstick) panel - Urine UROBILINOGEN : Normal 06/29/2018 [facility] Urinalysis macro (dipstick) panel - Urine PROTEIN : Negative 06/29/2018 [facility] Urinalysis macro (dipstick) panel - Urine pH : 6.0 06/29/2018 [facility] Urinalysis macro (dipstick) panel - Urine BLOOD : Hemolyzed Trace 06/29/2018 [facility] Urinalysis macro (dipstick) panel - Urine SPECIFIC GRAVITY : 1.000 06/29/2018 [facility] Urinalysis macro (dipstick) panel - Urine KETONES : Negative 06/29/2018 [facility] Urinalysis macro (dipstick) panel - Urine BILIRUBIN : Negative 06/29/2018 [facility] Urinalysis macro (dipstick) panel - Urine GLUCOSE Negative 06/29/2018 [facility] RESULT negative 06/29/2018 [facility] SWAB LOCATION Left and Right tonsillar pillars 06/29/2018 [facility] Influenza A negative 06/29/2018 [facility] Influenza B negative 06/29/2018 [facility] Retroperitoneal Complete US Retroperitoneal Complete US Study: Retroperitoneal Complete US Clinical Indication: N30.00 Acute cystitis without hematuria - Comparison: CT abdomen pelvis 01/04/2018 FINDINGS: KIDNEY: The right kidney measures 11.5 x 4.8 x 5.8 cm. The left kidney measures 11.6 x 5.9 x 5.1 cm. Each kidney demonstrates a normal sonographic texture. No mass, hydronephrosis, calculus or perinephric fluid collection is identified. BLADDER: The visualized urinary bladder is not remarkable. Bladder volume is 151 mL. Post void volume is 98 mL. Right ureteral jet is not identified. The visualized abdominal aorta is not remarkable. The bifurcation is obscured. Visualized inferior vena cava appears normal. IMPRESSION: 1. Normal kidneys. 2. Post void bladder residual. SL: [id number] 05/13/2018 - - Read by: Nnamdi Silva MD Dictated Date/time: 05/13/18 14:03 Electronically Signed by: Nnamdi Silva MD 05/13/18 14:05 FINAL REPORT [facility] MOLECULAR DIAGNOSTIC N gonorrhea by Amp Det (APTIMA) Negative *NA* (01/04/18 1:45 PM) Negative 01/04/2018 [facility] MOLECULAR DIAGNOSTIC Source APTIMA Vaginal *NA* (01/04/18 1:45 PM) 01/04/2018 [facility] MOLECULAR DIAGNOSTIC Source APTIMA Vaginal *NA* (01/04/18 1:45 PM) 01/04/2018 [facility] MOLECULAR DIAGNOSTIC C trachomatis by Amp Det (APTIMA) Negative *NA* (01/04/18 1:45 PM) Negative 01/04/2018 [facility] CHEM PANEL Lipase Lvl 171 unit/L 73 - 393 01/04/2018 [facility] CHEM PANEL eGFR 120 mL/min/1.73m2 01/04/2018 Result Comment: The eGFR is calculated using the [...] from the National Kidney Disease Education Program (NKDEP) which additionally recommends that when the eGFR is used in patients with extremes of body mass index for purposes of drug dosing, the eGFR should be multiplied by the estimated BMI. [facility] CHEM PANEL Alk Phos 68 unit/L 39 - 136 01/04/2018 [facility] CHEM PANEL Bili Total 0.2 mg/dL 0.2 - 1.3 01/04/2018 [facility] CHEM PANEL AST 25 unit/L 0 - 37 01/04/2018 [facility] CHEM PANEL ALT 46 unit/L 0 - 65 01/04/2018 [facility] CHEM PANEL Potassium Lvl 3.6 meq/L 3.5 - 5.1 01/04/2018 [facility] CHEM PANEL Chloride Lvl 103 meq/L 95 - 109 01/04/2018 [facility] CHEM PANEL CO2 29 meq/L 24 - 32 01/04/2018 [facility] CHEM PANEL Calcium Lvl 9.1 mg/dL 8.5 - 10.5 01/04/2018 [facility] CHEM PANEL Sodium Lvl 138 meq/L 135 - 145 01/04/2018 [facility] CHEM PANEL Albumin Lvl 3.8 g/dL 3.5 - 5.0 01/04/2018 [facility] CHEM PANEL Total Protein 8.1 g/dL 6.4 - 8.4 01/04/2018 [facility] CHEM PANEL Glucose Lvl 103 mg/dL 70 - 99 01/04/2018 [facility] CHEM PANEL Creatinine Lvl 0.66 mg/dL 0.50 - 1.40 01/04/2018 [facility] CHEM PANEL BUN 10 mg/dL 7 - 22 01/04/2018 [facility] CHEM PANEL A/G Ratio 0.9 0.7 - 1.6 01/04/2018 [facility] CHEM PANEL Globulin 4.3 g/dL 2.7 - 4.2 01/04/2018 [facility] CHEM PANEL AGAP 9.6 meq/L 10.0 - 20.0 01/04/2018 [facility] CHEM PANEL B/C Ratio 15 6 - 25 01/04/2018 [facility] HEMATOLOGY Basophils # 0.1 K/CMM 0.0 - 0.2 01/04/2018 [facility] HEMATOLOGY Lymphocytes 41.0 % 20.0 - 40.0 01/04/2018 [facility] HEMATOLOGY Segs 49.2 % 45.0 - 75.0 01/04/2018 [facility] Segs-Bands # 4.0 K/CMM 1.5 - 8.1 01/04/2018 [facility] Lymphocytes # 3.3 K/CMM 1.0 - 5.5 01/04/2018 [facility] HEMATOLOGY Eosinophils 1.9 % 0.0 - 4.0 01/04/2018 [facility] HEMATOLOGY Basophils 0.8 % 0.0 - 1.0 01/04/2018 [facility] Monocytes 7.1 % 2.0 - 12.0 01/04/2018 [facility] Monocytes # 0.6 K/CMM 0.0 - 0.8 01/04/2018 [facility] Eosinophils # 0.2 K/CMM 0.0 - 0.5 01/04/2018 [facility] Hct 38.3 % 36.0 - 48.0 01/04/2018 [facility] Hgb 12.6 g/dL 12.0 - 16.0 01/04/2018 [facility] WBC 8.1 K/CMM 3.7 - 10.4 01/04/2018 [facility] RDW 16.2 % 11.5 - 14.5 01/04/2018 [facility] MCV 82.1 fL 80.0 - 98.0 01/04/2018 [facility] MCH 27.0 pg 27.0 - 31.0 01/04/2018 [facility] MCHC 32.9 g/dL 32.0 - 36.0 01/04/2018 [facility] RBC 4.66 M/CMM 4.20 - 5.40 01/04/2018 [facility] Platelet 387 K/CMM 133 - 450 01/04/2018 [facility] MPV 8.1 fL 7.4 - 10.4 01/04/2018 [facility] URINE AND STOOL UA Leuk Est Moderate *ABN* (01/04/18 12:43 PM) Negative 01/04/2018 [facility] URINE AND STOOL UA WBC 22 /HPF 0 - 5 01/04/2018 [facility] URINE AND STOOL UA Sq Epi Moderate /LPF Few /LPF 01/04/2018 [facility] URINE AND STOOL UA Urobilinogen <=1.0 mg/dL 0.1 - 1.0 01/04/2018 [facility] URINE AND STOOL UA pH 5.0 5.0 - 8.0 01/04/2018 [facility] URINE AND STOOL UA Nitrite Negative (01/04/18 12:43 PM) Negative 01/04/2018 [facility] URINE AND STOOL UA Ketones Negative mg/dL Negative mg/dL 01/04/2018 [facility] URINE AND STOOL UA Bili Negative *NA* (01/04/18 12:43 PM) Negative 01/04/2018 [facility] URINE AND STOOL UA Blood Negative (01/04/18 12:43 PM) Negative 01/04/2018 [facility] URINE AND STOOL UA RBC 5 /HPF 0 - 2 01/04/2018 [facility] URINE AND STOOL UA Mucus Few /LPF None Seen /LPF 01/04/2018 [facility] URINE AND STOOL UA Turbidity Clear (01/04/18 12:43 PM) Clear 01/04/2018 [facility] URINE AND STOOL UA Spec Grav 1.018 <=1.030 01/04/2018 [facility] URINE AND STOOL UA Glucose Negative mg/dL Negative mg/dL 01/04/2018 [facility] URINE AND STOOL UA Protein Negative mg/dL Negative mg/dL 01/04/2018 [facility] URINE AND STOOL UA Color Yellow *NA* (01/04/18 12:43 PM) Yellow 01/04/2018 [facility] URINE CHEM U Preg Negative (01/04/18 12:43 PM) Negative 01/04/2018 [facility] ED Abdomen/Pelvis IV contrast only CT ED Abdomen/Pelvis IV contrast only CT Patient Name: KATE HURD : 1990; Age: 27 years Female MR: [id number] Study: ED Abdomen/Pelvis IV contrast only CT 01/04/2018 12:46 PM CDT Clinical Indication: - severe lower abdominal pain. Pt c/o dysuria x2 wks; previous UTI tx w/abx but reports no improvement. CT Radiation Dose DLP 1277 mGy-cm. IV contrast: 100 mL Omnipaque IV COMPARISON: None TECHNIQUE: Helical imaging was performed diaphragm through the symphysis with IV multiplanar reformations obtained after the administration of IV contrast. FINDINGS: LOWER CHEST: The lung bases are clear. ABDOMEN: No free air. LIVER: Fatty and enlarged liver. BILIARY TREE: Normal. GALLBLADDER: Normal. PANCREAS: Normal. SPLEEN: Normal. ADRENALS: Normal. KIDNEYS: No hydronephrosis. PELVIS: No pelvic mass. The urinary bladder is normal. BOWEL: No small bowel obstruction. Mild degree of colonic stool. Scattered sigmoid diverticula. Normal appendix. PERITONEUM: No free intraperitoneal fluid. RETROPERITONEUM: The aorta is normal. There is no pathologic lymphadenopathy. MUSCULOSKELETAL: The skeleton is intact. IMPRESSION: 1. Fatty and enlarged liver. 2. Normal appendix. SL: JEANETTE 01/04/2018 - - Read by: Shalom Jimenez MD Dictated Date/time: 01/04/18 15:59 Electronically Signed by: Shalom Jimenez MD 01/04/18 16:06 FINAL REPORT [facility] Vital Signs Vital Sign Value Date Comments Source Diastolic (mm Hg) 70 06/29/2018 [facility] Height 65 06/29/2018 [facility] Systolic (mm Hg) 110 06/29/2018 [facility] Weight 250 06/29/2018 [facility] Weight 118.182 03/03/2018 [facility] BMI Calculated 43.36 03/03/2018 [facility] Height 165.1 cm 03/03/2018 [facility] Heart Rate 95 03/03/2018 [facility] Systolic (mm Hg) 140 03/03/2018 [facility] Diastolic (mm Hg) 86 03/03/2018 [facility] Weight 118.182 02/05/2018 [facility] Height 165.1 cm 02/05/2018 [facility] Temperature Oral (F) 97.7 F 02/05/2018 [facility] Respitory Rate 16 02/05/2018 [facility] Heart Rate 114 02/05/2018 [facility] Systolic (mm Hg) 131 02/05/2018 [facility] Diastolic (mm Hg) 97 02/05/2018 [facility] BMI Calculated 43.36 02/05/2018 [facility] Temperature Oral (F) 98.1 F 01/04/2018 [facility] Heart Rate 66 01/04/2018 [facility] Systolic (mm Hg) 149 01/04/2018 [facility] Diastolic (mm Hg) 100 01/04/2018 [facility] Respitory Rate 16 01/04/2018 [facility] Diastolic (mm Hg) 87 01/04/2018 [facility] Systolic (mm Hg) 138 01/04/2018 [facility] Respitory Rate 16 01/04/2018 [facility] Heart Rate 83 01/04/2018 [facility] Temperature Oral (F) 97.7 F 01/04/2018 [facility] BMI Calculated 44.36 01/04/2018 [facility] Weight 120.909 01/04/2018 [facility] Temperature Oral (F) 99.4 F 01/04/2018 [facility] Height 165.1 cm 01/04/2018 [facility] Respitory Rate 18 01/04/2018 [facility] Heart Rate 83 01/04/2018 [facility] Systolic (mm Hg) 153 01/04/2018 [facility] Diastolic (mm Hg) 100 01/04/2018 [facility] Encounters Location Location Details Encounter Type Encounter Number Reason For Visit Attending Provider ADM Date DC Date Status Source [facility] Emergency [id number] Yann Garcia 01/04/2018 01/04/2018 [facility] Outpatient [id number] YANN HUNGANDER 02/05/2018 Active [facility] Outpatient [id number] [facility] 02/05/2018 02/06/2018 [facility] Phone Message [id number] 02/08/2018 02/10/2018 [facility] Outpatient [id number] YANN KAYLI 03/03/2018 [facility] [id number] Yann [facility] 03/03/2018 03/04/2018 [facility] Outpatient [id number] YANN HUNGANDER 05/05/2018 Active [facility] Outpatient [id number] YANN [facility] 05[facility]13/2018 Active [facility] Outpatient [id number] [facility] 05/19/2018 Active [facility] Outpatient [id number] YANN [facility] 05/28/2018 Active [facility] Outpatient [id number] YANN HUNGANDER 06/04/2018 Active [facility] [id number]_CiymkefuPedro Walsh, 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 [id number] Jessie Walsh 06/29/2018 [facility] Outpatient [id number] YANN [facility] 07/05/2018 Active [facility] Outpatient [id number] YANN [facility] 08/16/2018 Active [facility] Ambulatory Pre-Reg [id number] Yann [facility] 08/16/2018 08/16/2018 Medical [facility] Outpatient [id number] YANN [facility] 09/17/2018 Active [facility] Ambulatory Pre-Reg [id number] Yann [facility] 09/17/2018 09/17/2018 Medical [facility] Procedures Procedure Code Date Perfomer Comments Source Insertion of non-indwelling bladder catheter (eg, straight catheterization for residual urine) 22308 02/05/2018 [facility] Sinus [id number] [facility] Tonsillectomy [facility]
[2018-10-06] MEDS ORDERED: KETOROLAC TROMETHAMINE 60 MG/2 ML VIAL IM ONE (10:15)
--- NOTE | 2018-10-06 11:13 | NUR ---
PT STATES SHE FEELS LIKE SHE'S BREATHING BETTER BUT CAN'T TAKE IN A FULL BREATH; PT STATES PAIN IS IMPROVED FROM 5 TO 2/10
--- NOTE | 2018-10-06 11:25 | Diagnostic Imaging Report ---
EXAMINATION: CHEST 2 VIEWS INDICATION: Chest pain. COMPARISON: None FINDINGS: TUBES and LINES: None. LUNGS: Moderate inflation of the lungs. Lungs are clear. There is no evidence of pneumonia or pulmonary edema. PLEURA: No pleural effusion or pneumothorax. HEART AND MEDIASTINUM: The cardiomediastinal silhouette is unremarkable. BONES AND SOFT TISSUES: No acute osseous lesion. Soft tissues are unremarkable. UPPER ABDOMEN: No free air under the diaphragm. IMPRESSION: No acute radiographic abnormality. Signed by: Dr. Darwin Santoro MD on 10/06/2018 11:22 AM
[2018-10-06 11:43] VITALS: BP 127/81
== END 2018-10-06 11:49 | disposition home or self-care (01) ==
LOC: ER 08:46
DX: R07.89 Other chest pain (principal); F41.1 Generalized anxiety disorder
CPT/HCPCS: 71046; 93005; 99283; J1885